=== PATIENT | female | born 1990 ===

== ENCOUNTER 2020-11-17 15:24 | Outpatient (REF) | payer OTHER, SELFPAY ==
[2020-11-19 21:32] LABS: C. trachomatis RNA TMA NOT DETECTED (NOT DETECTED); N. gonorrhoeae RNA TMA NOT DETECTED (NOT DETECTED)
== END 2020-11-17 15:25 | disposition home or self-care (01) ==
LOC: HO.LAB 15:24
PROVIDERS: Visit Provider Advanced Practice Midwife
DX: Z01.419 Encounter for gynecological examination (general) (routine) without abnormal findings (principal); N91.1 Secondary amenorrhea; Z20.2 Contact with and (suspected) exposure to infections with a predominantly sexual mode of transmission
CPT/HCPCS: 36415; 87491; 87591; 88142

== ENCOUNTER 2020-11-30 15:03 | Outpatient (REF) | payer OTHER, SELFPAY ==
--- NOTE | 2020-11-30 15:11 | US_ITS ---
EXAMINATION: ULTRASOUND PELVIS. CLINICAL INFORMATION: Secondary amenorrhea. Previous . COMPARISON: None TECHNIQUE: Transabdominal and transvaginal ultrasound pelvis is performed. FINDINGS: The uterus is anteverted and anteflexed measuring 11.4 cm in length, 4 1 cm in AP and 5.4 cm in transverse dimension. The uterus is homogeneous in echotexture. There is trace fluid within the cervical canal. Cervix is otherwise unremarkable. The right ovary measures 3.4 x 2.5 x 2.6 cm volume 11.6 mL. There are multiple follicles seen in the right ovary. The largest cyst measures 1.3 x 1.2 x 0.9 cm. The left ovary measures 2.6 x 2.1 x 2.1 cm and volume 6.0 mL. There are multiple follicles seen. There is no free fluid in the cul-de-sac. US/US transvaginal IMPRESSION: Unremarkable uterus. There are multiple or and follicles visualized. There is minimal fluid within the cervical canal.
--- NOTE | 2020-11-30 15:11 | US_ITS ---
EXAMINATION: ULTRASOUND PELVIS. CLINICAL INFORMATION: Secondary amenorrhea. Previous . COMPARISON: None TECHNIQUE: Transabdominal and transvaginal ultrasound pelvis is performed. FINDINGS: The uterus is anteverted and anteflexed measuring 11.4 cm in length, 4 1 cm in AP and 5.4 cm in transverse dimension. The uterus is homogeneous in echotexture. There is trace fluid within the cervical canal. Cervix is otherwise unremarkable. The right ovary measures 3.4 x 2.5 x 2.6 cm volume 11.6 mL. There are multiple follicles seen in the right ovary. The largest cyst measures 1.3 x 1.2 x 0.9 cm. The left ovary measures 2.6 x 2.1 x 2.1 cm and volume 6.0 mL. There are multiple follicles seen. There is no free fluid in the cul-de-sac. US/US pelvic complete IMPRESSION: Unremarkable uterus. There are multiple or and follicles visualized. There is minimal fluid within the cervical canal.
[2020-11-30 17:40] LABS: Syphilis Screen Nonreactive (Nonreactive)
[2020-11-30 17:42] LABS: HCG Quantitative < 2 mIU/mL; TSH reflex Free T4 1.66 mIU/mL (0.32-4.0)
[2020-12-01 08:31] LABS: Follicle Stimulating Hormone 6.9 mIU/mL; Lutenizing Hormone 6.3 mIU/mL; Prolactin 8.8 ng/mL
[2020-12-02 09:20] LABS: HBsAGNum1 0.22 S/CO (0.00-0.99); HIV AB/AG Nonreactive (Nonreactive); HIV Num 1 0.08 S/CO (0.00-0.99); Hepatitis B Surface Antigen Negative (Negative); ~HepC Num1 0.14 S/CO (0.00-0.79); ~Hepatitis C Antibody Nonreactive (Nonreactive)
[2020-12-03 00:27] LABS: C. trachomatis RNA TMA NOT DETECTED (NOT DETECTED); N. gonorrhoeae RNA TMA NOT DETECTED (NOT DETECTED)
[2020-12-04 13:02] LABS: Testosterone, Free 4.2 pg/mL (0.1-6.4); Testosterone, Total 28 ng/dL (2-45)
== END 2020-11-30 15:04 | disposition home or self-care (01) ==
LOC: HO.US 15:03
PROVIDERS: Visit Provider Advanced Practice Midwife
DX: N91.1 Secondary amenorrhea (principal); Z20.2 Contact with and (suspected) exposure to infections with a predominantly sexual mode of transmission
CPT/HCPCS: 36415; 76830; 76856; 83001; 83002; 83498; 84146; 84402; 84403; 84443; 84702; 86780; 86803; 87340; 87389; 87491; 87591

== ENCOUNTER → 2020-12-10 12:02 | Outpatient (BNVA) | payer OTHER, SELFPAY | PROVIDERS: PCP Hospitalist; Visit Provider Advanced Practice Midwife ==

== ENCOUNTER → 2020-12-16 13:32 | Outpatient (BNVA) | payer OTHER, SELFPAY | PROVIDERS: PCP Hospitalist; Visit Provider Advanced Practice Midwife | CPT/HCPCS: 99212 ==

== ENCOUNTER → 2021-01-07 11:44 | Outpatient (BNVA) | payer OTHER, SELFPAY | PROVIDERS: PCP Hospitalist; Visit Provider Advanced Practice Midwife ==

== ENCOUNTER 2023-06-23 13:09 | Outpatient (AMB) | payer BC, SELFPAY ==
--- NOTE | 2023-06-23 13:26 | MHC.PC.OV ---
Vital Signs 06/23/23 13:38 Height 5 ft 6 in Weight 297 lb 6 oz BMI 48.0 BP 112/68 Blood Pressure Location Lt brachial Position Sitting Respiration 14 Pulse 96 Pulse Source Pulse Oximeter Temp 97.9 F Temp Source Temporal Artery Scan Pulse Oximetry (%) 99 Oxygen Delivery Method Room Air Intake Visit Reasons: Follow up on anxiety and depression Intake Note: Patient is here to follow up on her anxiety and depression. Patient is currently taking fluoxetine 20mg daily. Patient reports she feels like this medication is doing well with her body and is not currently experiencing any symptoms. Patient reports her reproductive specialist prescribed her metformin 500mg BID and patient feels this is going well also. 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: No Accompanied by: Self / Same As Patient Allergies codeine Allergy (Severe, Verified 06/23/23 13:34) Hives Penicillins Allergy (Severe, Verified 06/23/23 13:34) Hives Sulfa (Sulfonamide Antibiotics) Allergy (Severe, Verified 06/23/23 13:34) Hives Tobacco use date assessed: 02/24/23 Dental Screening Dental Screen Date: 06/23/23 Did you have a dental visit in the last 12 months?: No Did you have a dental problem in the last 6 months where you did not have access to dental care?: No Was dental information given to patient?: Patient has dentist HPI Follow up on anxiety and depression HPI Details Pt presents to f/u anxiety/depression. Had seen Kandice Shipman 02/24/23 for her anxiety/depression. Fluoxetine was ordered. Patient is currently taking fluoxetine 20mg daily. Patient reports she feels like this medication is doing well with her body and is not currently experiencing any symptoms. Patient reports her reproductive specialist prescribed her metformin 500mg BID and patient feels this is going well also. She feels that a higher dose of fluoxetine could help more. [facility] Medical History Abdominal wound dehiscence Asthma History of migraine with aura History of severe pre-eclampsia Obesity, morbid, BMI 40.0-49.9 Polycystic ovary syndrome Surgical History Hx of section Family History Mother Lung cancer Maternal Grandfather Prostate cancer Maternal Grandmother Lymph node cancer Social History Housing: House Alcohol intake: never Patient Tobacco Use Status: Never used Tobacco e-Cigarette/Vaping Use: Never Used service: No Current occupational status: employed Current occupation: [employer] Sexual orientation: Straight/Heterosexual Gender identity: Female Cognitive needs: No Hearing needs: No Vision needs: No Female Reproductive History Menstrual Age of Menarche: 17 Questionnaire PHQ-9 Over the last 2 weeks, how often have you been bothered by any of the following problems? 1. Little interest or pleasure in doing things: not at all 2. Feeling down, depressed, or hopeless: several days 3. Trouble falling or staying asleep, or sleeping too much: nearly every day 4. Feeling tired or having little energy: several days 5. Poor appetite or overeating: more than half the days 6. Feeling bad about yourself - or that you are a failure or have let yourself or your family down: not at all 7. Trouble concentrating on things, such as reading the newspaper or watching television: several days 8. Moving or speaking so slowly that other people could have noticed. Or the opposite - being so fidgety or restless that you have been moving around a lot more than usual: several days 9. Thoughts that you would be better off or of hurting yourself in some way: not at all Total score: 9 Depression Screening Interpretation: Positive 77414 - PHQ-9 Billing: Yes Source: Developed by Drs. Kenrick Vega, Cindy Guillen, Fredis Yee and colleagues, with an educational irwin from [employer]. LAKEISHA-7 AMB Questionnaire LAKEISHA-7 Date LAKEISHA - 7 assessed: 06/23/23 Feeling nervous, anxious, or on edge: 2 = More than half the days Not being able to stop or control worryin = More than half the days Worrying too much about different things: 2 = More than half the days Trouble relaxin = More than half the days Being so restless that it is hard to sit still: 2 = More than half the days Becoming easily annoyed or irritable: 3 = Nearly every day Feeling afraid as if something awful might happen: 2 = More than half the days Total LAKEISHA-7 score (0-4 normal; 5-9 mild; 10-14 moderate; 15-21 severe): 15 Source: Developed by Drs. Kenrick Vega, Cindy Guillen, Fredis Yee and colleagues, with an educational irwin from [employer]. LAKEISHA-7 Assessment Billing LAKEISHA-7 Assessment Tool: LAKEISHA-7 Assessment 47578 Physical exam (Primary Care) Vital Signs: Last Vital Signs Temp 97.9 F 06/23/23 13:38 Pulse 96 06/23/23 13:38 Resp 14 06/23/23 13:38 BP 112/68 06/23/23 13:38 Pulse Ox 99 06/23/23 13:38 Oxygen Delivery Method Room Air 06/23/23 13:38 BMI result Body Mass Index 48.0 Tobacco/Smoking Status: Tobacco use Status Tobacco use date assessed 02/24/23 06/23/23 13:27 Patient Tobacco Use Status Never used Tobacco 06/23/23 13:27 e-Cigarette/Vaping Use Never Used 06/23/23 13:27 PHQ-9: PHQ-9 Score PHQ-9: Total score 9 06/23/23 14:33 Depression Screening Interpretation: Positive Assessment and Plan Assessment & Plan (1) Anxiety with depression: Code(s): F41.8 - Other specified anxiety disorders Plan: Ongoing anxiety. Patient notes that the 20 mg fluoxetine is helping but she thinks that higher dose would help more. Will increase this to 30 mg daily Follow-up in 1 month Also offered hydroxyzine for anxiety but patient declines this for now. (2) Polycystic ovary syndrome: Code(s): E28.2 - Polycystic ovarian syndrome Plan: Patient is on metformin and followed by an brick dropper. She would like to know if we could cover this medication in the future and I let her know I would provide her script when needed. Medications: New fluoxetine 30 mg (1.5 x 20 mg) PO DAILY 45 tabs 1RF 30 days Discontinued fluoxetine Discontinued Reason: Doctor's Order 20 mg PO DAILY 90 caps 3RF 90 days Coding Level of Care Code Est Pt Level 3 (26126) Diagnoses Anxiety with depression F41.8 Polycystic ovary syndrome E28.2 Additional Codes LAKEISHA-7 Assessment Billing - LAKEISHA-7 Assessment Tool: LAKEISHA-7 Assessment 47485 ([id number])
[2023-06-23 13:38] VITALS: BP 112/68; PULSE 96; RESP 14; TEMP 36.6; O2SAT 99; BMI 48.0
== END 2023-06-23 14:38 | disposition home or self-care (01) ==
PROVIDERS: PCP Family Medicine; Visit Provider Family Medicine
DX: F41.8 Other specified anxiety disorders (principal); E28.2 Polycystic ovarian syndrome
CPT/HCPCS: 99213

== ENCOUNTER 2023-07-19 12:54 | Outpatient (AMB) | payer BC, SELFPAY ==
[2023-07-19 12:59] VITALS: BP 124/64; PULSE 99; RESP 12; TEMP 35.9; O2SAT 98; BMI 47.6
--- NOTE | 2023-07-19 12:59 | A.OFFPC_ITS ---
Vital Signs 07/19/23 12:59 Height 5 ft 6 in Weight 295 lb BMI 47.6 BP 124/64 Blood Pressure Location Lt brachial Position Sitting Respiration 12 Pulse 99 Pulse Source Pulse Oximeter Temp 96.7 F L Temp Source Temporal Artery Scan Pulse Oximetry (%) 98 Oxygen Delivery Method Room Air Intake Visit Reasons: Health MD urgent, abnormal EKG Intake Note: Patient states the day of ED visit she had pulled into her work parking lot and states she felt dizzy. Patient states that earlier that morning she had a panic attack.Patient states that she went to urgent care they did a EKG and after EKG result she was sent to ER. Patient states that she didnt get seen at ER but did have another EKG done there. Patient states that she just wants to make sure if there is anything else that needs to be done and what the next step would be. Patient states that her fluoxetine is in capsules instead of tabs so shes just been taking 20 MG only. Hospital Sales Representative Required: No Accompanied by: Self / Same As Patient Allergies codeine Allergy (Severe, Verified 07/19/23 13:20) Hives Penicillins Allergy (Severe, Verified 07/19/23 13:20) Hives Sulfa (Sulfonamide Antibiotics) Allergy (Severe, Verified 07/19/23 13:20) Hives Medication List - Last Reconciled 07/19/23 by Kandice Shipman CNP fluoxetine 30 mg (1.5 x 20 mg) PO DAILY 30 days metformin 500 mg PO BID Tobacco use date assessed: 02/24/23 Dental Screening Dental Screen Date: 07/19/23 Did you have a dental visit in the last 12 months?: Yes Did you have a dental problem in the last 6 months where you did not have access to dental care?: No Was dental information given to patient?: Patient has dentist HPI HPI Comments History of Present Illness Details 32-year-old female presents for recent urgent care and ED visit follow- up She was evaluated at [address] on 07/14/2023 for dizziness with associated blurry vision and fatigue. She noticed symptoms started while driving to work. EKG revealed normal sinus rhythm with moderate right precordial repolarization disturbance. She was sent to the ED for further workup. She notes she went to [facility] ED where shed had an EKG blood work done and left before being seen due to family obligations. She reports experiencing panic attack before the onset of her symptoms. She notes she has been taking fluoxetine 20 mg daily instead of prescribed 30 mg daily because her health plan failed to cover the prescription in capsule form. She denies acute symptoms for the past few days. [facility] Medical History Abdominal wound dehiscence Asthma History of migraine with aura History of severe pre-eclampsia Obesity, morbid, BMI 40.0-49.9 Polycystic ovary syndrome Surgical History Hx of section Family History Mother Lung cancer Maternal Grandfather Prostate cancer Maternal Grandmother Lymph node cancer Social History Housing: House Alcohol intake: never Patient Tobacco Use Status: Never used Tobacco e-Cigarette/Vaping Use: Never Used service: No Current occupational status: employed Current occupation: [employer] Sexual orientation: Straight/Heterosexual Gender identity: Female Cognitive needs: No Hearing needs: No Vision needs: No Female Reproductive History Menstrual Age of Menarche: 17 Questionnaire LAKEISHA-7 AMB Questionnaire LAKEISHA-7 Date LAKEISHA - 7 assessed: 06/23/23 Source: Developed by Drs. Kenrick Vega, Cindy Guillen, Fredis Yee and colleagues, with an educational irwin from [employer]. Review of Systems Const Details: Const Denies chills, Denies fatigue, Denies fever(s), Denies headache(s) and Denies weakness ENT Denies dizziness and Denies headache(s) Card Denies chest pain, Denies lightheadedness, Denies dyspnea and Denies other (Palpitations) Resp Denies cough, Denies dyspnea, Denies wheezing and Denies other ( shortness of breath) GI Denies abdominal pain, Denies melena, Denies hematochezia, Denies change in bowel habits, Denies dyspepsia and Denies nausea Denies hematuria and Denies dysuria Musc Denies abnormal gait, Denies myalgias, Denies arthralgias, Denies numbness and Denies tingling Skin/Breast Denies rash, Denies unusual bruising and Denies wounds Neuro Denies abnormal gait, Denies dizziness, Denies headache(s), Denies memory loss, Denies numbness, Denies Sensory deficit (Neuro), Denies tingling and Denies weakness Psych Denies anxiety, Denies depression, Denies memory loss Endo Denies cold intolerance, Denies fatigue, Denies heat intolerance, Denies polydipsia and Denies polyuria Aller/Immun Denies wheezing Physical exam (Primary Care) Vital Signs: Last Vital Signs Temp 96.7 F L 07/19/23 12:59 Pulse 99 07/19/23 12:59 Resp 12 07/19/23 12:59 BP 124/64 07/19/23 12:59 Pulse Ox 98 07/19/23 12:59 Oxygen Delivery Method Room Air 07/19/23 12:59 BMI result Body Mass Index 47.6 Tobacco/Smoking Status: Tobacco use Status Tobacco use date assessed 02/24/23 07/19/23 13:11 Patient Tobacco Use Status Never used Tobacco 07/19/23 13:11 e-Cigarette/Vaping Use Never Used 07/19/23 13:11 Const Other: General: no acute distress and well developed Nutritional Appearance: well nourished Orientation/consciousness: patient oriented x3 HENMT Head: Yes normocephalic and Yes atraumatic Eyes General: appearance normal, both eyes and all related structures Pupils: Equal, round and reactive pupils present EOM: EOMs intact bilaterally Resp Effort & Inspection: normal respiratory effort Auscultation: clear to auscultation bilaterally Cardio Rate: regular rate Rhythm: regular rhythm Heart sounds: S1 normal heart sound present, S2 normal heart sound present, no gallops, no murmurs and no rubs GI Palpation (GI): No Abdominal aortic bruit present, Soft to palpation, nontender, No hepatosplenomegaly present and No Rebound tenderness present Auscultation: normal bowel sounds General: Yes no CVA tenderness Back/Spine/Pelvis Back: no CVA tenderness Cervical Spine: cervical ROM normal and No Cervical spine tenderness Thoracic/Lumbar Spine: thoraco-lumbar ROM normal, No pain with thoraco-lumbar ROM, No thoracic spinal tenderness and No lumbar spinal tenderness Extrem General: Yes normal to inspection, No edema and No calf tenderness Skin General: warm and dry. Normal skin color. Normal skin turgor Lesions: no lesions Rashes: no rashes Trauma: no lacerations or abrasions Wounds: no wounds Nails: normal Neuro General: patient oriented x3, gait normal and no focal neuro deficit Cranial nerves: Yes Equal, round and reactive pupils present Cognition (Neuro): normal cognition Gait exam (Neuro): Normal gait present Sensory Exam: No Sensory deficit (Neuro) Psych Appearance: grossly normal Affect: normal affect Attitude: cooperative Thought process: Normal thought process present Assessment and Plan Assessment & Plan (1) Hospital discharge follow-up: Code(s): Z09 - Encounter for follow-up examination after completed treatment for conditions other than malignant neoplasm Plan: No acute symptoms at this time Normal exam Recent blood work by [facility] reviewed and were unrevealing; EKG was not interpreted Her symptoms may be related to anxiety Discussed with the patient's PCP regarding her health plan declining to cover her current order for fluoxetine. Advised to order fluoxetine 40 mg daily and have patient follow-up with him in 3-4 weeks Follow-up with PCP in 3-4 weeks or return sooner with worsening or new symptoms Verbalized understanding and agreed with treatment plan. Medications: New fluoxetine 40 mg PO DAILY 1 day 30 caps 1RF Discontinued fluoxetine Discontinued Reason: Doctor's Order 30 mg (1.5 x 20 mg) PO DAILY 30 days 45 tabs 1RF Coding Level of Care Code Est Pt Level 3 (50232) Diagnoses Hospital discharge follow-up Z09
== END 2023-07-19 13:34 | disposition home or self-care (01) ==
PROVIDERS: PCP Family Medicine; Visit Provider Nurse Practitioner Family
DX: Z09 Encounter for follow-up examination after completed treatment for conditions other than malignant neoplasm (principal)
CPT/HCPCS: 99213

== ENCOUNTER 2023-09-22 14:11 | Outpatient (AMB) | payer BC, SELFPAY ==
--- NOTE | 2023-09-22 14:14 | MHC.PC.OV ---
Vital Signs 09/22/23 14:16 Height 5 ft 6 in Weight 285 lb BMI 46.0 BP 118/68 Blood Pressure Location Rt brachial Position Sitting Pulse 82 Pulse Source Pulse Oximeter Pulse Oximetry (%) 99 Oxygen Delivery Method Room Air Intake Visit Reasons: Follow up on anxiety and depression Intake Note: Patient is here to follow up on anxiety and depression. Allergies codeine Allergy (Severe, Verified 09/22/23 14:17) Hives Penicillins Allergy (Severe, Verified 09/22/23 14:17) Hives Sulfa (Sulfonamide Antibiotics) Allergy (Severe, Verified 09/22/23 14:17) Hives Tobacco use date assessed: 09/22/23 HPI Follow up on anxiety and depression HPI Details 32 y/o female presents to f/u anxiety/depression. Primary issues with anxiety and is on fluoxetine which she states has been helping. Increased fluoxetine from 20mg to 30mg last office visit in June. She is on fluoxetine 40mg now and she states this has been working well for her. She notes she has a referral to a therapist. Patient?notes?that?she?is?9?weeks?.??She?has?discussed?fluoxetine?with?her?MFM?and?wants?to?continue?this.??She?says?MFM?is?okay?with?current?dose. [facility] Medical History Abdominal wound dehiscence Asthma History of migraine with aura History of severe pre-eclampsia Obesity, morbid, BMI 40.0-49.9 Polycystic ovary syndrome Surgical History Hx of section Family History Mother Lung cancer Maternal Grandfather Prostate cancer Maternal Grandmother Lymph node cancer Social History Housing: House Alcohol intake: never Patient Tobacco Use Status: Never used Tobacco e-Cigarette/Vaping Use: Never Used service: No Current occupational status: employed Current occupation: [employer] Sexual orientation: Straight/Heterosexual Gender identity: Female Cognitive needs: No Hearing needs: No Vision needs: No Female Reproductive History Menstrual Age of Menarche: 17 Questionnaire PHQ-9 Over the last 2 weeks, how often have you been bothered by any of the following problems? 1. Little interest or pleasure in doing things: not at all 2. Feeling down, depressed, or hopeless: not at all 3. Trouble falling or staying asleep, or sleeping too much: nearly every day 4. Feeling tired or having little energy: not at all 5. Poor appetite or overeating: not at all 6. Feeling bad about yourself - or that you are a failure or have let yourself or your family down: not at all 7. Trouble concentrating on things, such as reading the newspaper or watching television: not at all 8. Moving or speaking so slowly that other people could have noticed. Or the opposite - being so fidgety or restless that you have been moving around a lot more than usual: not at all 9. Thoughts that you would be better off or of hurting yourself in some way: not at all Total score: 3 Source: Developed by Drs. Kenrick Vega, Fredis Fuentes and colleagues, with an educational irwin from [employer]. LAKEISHA-7 AMB Questionnaire LAKEISHA-7 Date LAKEISHA - 7 assessed: 09/22/23 Feeling nervous, anxious, or on edge: 0 = Not at all Not being able to stop or control worryin = Not at all Worrying too much about different things: 0 = Not at all Trouble relaxin = Not at all Being so restless that it is hard to sit still: 0 = Not at all Becoming easily annoyed or irritable: 0 = Not at all Feeling afraid as if something awful might happen: 0 = Not at all Total LAKEISHA-7 score (0-4 normal; 5-9 mild; 10-14 moderate; 15-21 severe): 0 Source: Developed by Drs. Kenrick Vega, Fredis Fuentes and colleagues, with an educational irwin from [employer]. Review of Systems Const Denies chills, Denies fatigue, Denies fever(s), Denies headache(s) and Denies weakness ENT Denies dizziness and Denies headache(s) Card Denies chest pain, Denies lightheadedness, Denies dyspnea and Denies other (Palpitations) Resp Denies cough, Denies dyspnea, Denies wheezing and Denies other ( shortness of breath) Musc Denies numbness and Denies tingling Neuro Denies dizziness, Denies headache(s), Denies numbness, Denies tingling, Denies paresthesias and Denies weakness Psych Denies anxiety and Denies depression Endo Denies fatigue Aller/Immun Denies wheezing Physical exam (Primary Care) Vital Signs: Last Vital Signs Pulse 82 09/22/23 14:16 BP 118/68 09/22/23 14:16 Pulse Ox 99 09/22/23 14:16 Oxygen Delivery Method Room Air 09/22/23 14:16 BMI result Body Mass Index 46.0 Tobacco/Smoking Status: Tobacco use Status Tobacco use date assessed 09/22/23 09/22/23 14:18 Patient Tobacco Use Status Never used Tobacco 09/22/23 14:15 e-Cigarette/Vaping Use Never Used 09/22/23 14:15 PHQ-9: PHQ-9 Score PHQ-9: Total score 3 09/22/23 14:43 Const General: no acute distress and well developed Nutritional Appearance: well nourished and obese morbidly obese Orientation/consciousness: patient oriented x3 HENMT Head: Yes normocephalic and Yes atraumatic Eyes General: appearance normal, both eyes and all related structures Pupils: Equal, round and reactive pupils present EOM: EOMs intact bilaterally Resp Effort & Inspection: normal respiratory effort Auscultation: clear to auscultation bilaterally Cardio Rate: regular rate Rhythm: regular rhythm Heart sounds: S1 normal heart sound present, S2 normal heart sound present, no gallops, no murmurs and no rubs Neuro General: patient oriented x3 and gait normal Cranial nerves: Yes Equal, round and reactive pupils present Psych Affect: normal affect Assessment and Plan Assessment & Plan (1) Anxiety with depression: Code(s): F41.8 - Other specified anxiety disorders Plan: Anxiety?appears?well?controlled?on?fluoxetine?40?mg?daily. However,?patient?notes?that?she?is?9?weeks?. I?had?a?discussion?with?her?regarding?possibility?for?adverse?affects?on??with?SSRI?medications. Patient?understands?risk?and?has?already?discuss?this?with?her?MFM. We?will?continue?fluoxetine. Also?discussed?that?there?is?more?data?concerning?the?use?of?sertraline?in??and?she?will?look?into?this?and?also?discuss?further?with?MFM?and?OBGYN. No?changes?to?current?medication?regimen?today. (2) Incidental : Code(s): Z33.1 - state, incidental Plan: As?above Follow-up?with?MFM?and?OBGYN Coding Level of Care Code Est Pt Level 3 (02846) Diagnoses Anxiety with depression F41.8 Incidental Z33.1
[2023-09-22 14:16] VITALS: BP 118/68; PULSE 82; O2SAT 99; BMI 46.0
== END 2023-09-22 15:10 | disposition home or self-care (01) ==
PROVIDERS: PCP Family Medicine; Visit Provider Family Medicine
DX: F41.8 Other specified anxiety disorders (principal); Z33.1 Pregnant state, incidental
CPT/HCPCS: 99213

== ENCOUNTER 2023-10-12 07:08 | Outpatient (REF) | payer BC, SELFPAY ==
[2023-10-12 11:44] LABS: MANUAL DIFF FLAG NO
[2023-10-12 11:57] LABS: Appearance Urine Turbid; Color Urine Yellow; Glucose Urine UA Negative (Negative); Leukocyte Esterase Urine Negative (Negative); Nitrite Urine Negative (Negative); Specific Gravity - Urine >= 1.030 (1.005-1.025); UMIC TRIGGER UA YES; Urine Blood Negative (Negative); Urine Ketones Negative (Negative); Urine Protein 30 (1+) mg/dL (Neg-Trace)
[2023-10-12 12:28] LABS: Basophils Percent Auto 0.3 % (0-2); Eosinophils Absolute Auto 0.2 X10*3/uL (0.0-0.4); Eosinophils Percent Auto 2.2 % (0-4); Hematocrit 36.6 % (37.0-47.0); Hemoglobin 12.1 g/dl (12.0-16.0); Imm Gran Abs Auto 0.04 X10*3/uL (0.00-0.03); Imm Gran Pct Auto 0.4 % (0.0-0.4); Lymphocytes Absolute Auto 1.8 X10*3/uL (1.2-4.9); Mean Corpuscular HGB Conc 33.1 g/dl (31.0-35.0); Mean Corpuscular Hemoglobin 29.2 pg (27.0-33.0); Mean Corpuscular Volume 88.4 fL (80.0-98.0); Mean Platelet Volume 11.6 fL (9.4-12.3); Monocytes Absolute Auto 0.6 X10*3/uL (0.1-1.2); Monocytes Percent Auto 6.2 % (2-11); Neutrophils Absolute Auto 7.6 x10*3/uL (2.0-8.3); Neutrophils Percent Auto 73.9 % (45-73); Platelet Count 207 X10*3/uL (160-400); Red Blood Count 4.14 X10*6/uL (4.20-5.50); Red Cell Distribution Width 13.1 % (11.0-16.0); White Blood Count 10.3 X10*3/uL (4.8-10.8)
[2023-10-12 12:37] LABS: Alanine Aminotransferase 14 U/L (0-31); Albumin Level 3.8 g/dL (3.5-5.0); Alkaline Phosphatase 43 U/L (39-117); Anion Gap 11 (12-20); Aspartate Amino Transferase 13 U/L (5-31); Bilirubin Total 0.3 mg/dL (0.0-1.0); Blood Urea Nitrogen 10 mg/dL (9-16); Calcium 8.8 mg/dL (8.4-10.2); Carbon Dioxide 23 mmol/L (22-29); Chloride 104 mmol/L (96-108); Cholesterol 161 mg/dL (<200); Estimated Glomerular Filt Rate > 60; Glucose Fasting 107 mg/dL (60-99); HDL Cholesterol 49 mg/dL (>40); LDL Cholesterol Calculated 87 mg/dL (<100); Potassium 3.9 mmol/L (3.3-5.1); Sodium 134 mmol/L (135-145); Total Protein 6.9 g/dL (6.5-8.0); Triglycerides 126 mg/dL (<150)
[2023-10-12 12:43] LABS: TSH reflex Free T4 0.91 uIU/mL (0.32-4.0)
[2023-10-12 12:46] LABS: Bacteria Urine None Seen (None Seen); Hyaline Casts Urine 0-2 /LPF (0-2); Other Crystals Urine Present; RBC Urine 0-2 /HPF (0-2); Squamous Epithelial Cell Urine 0-2 /HPF (0-2); WBC Urine 0-5 /HPF (0-5)
[2023-10-12 12:49] LABS: Creatinine Urine 301.41 mg/dL; Microalbum/Creatinine Ratio Ur 36.1 ug/mg cr (<30)
== END 2023-10-12 07:09 | disposition home or self-care (01) ==
LOC: HO.WFDLDS 07:08
PROVIDERS: Visit Provider Family Medicine
DX: Z00.00 Encounter for general adult medical examination without abnormal findings (principal); I10 Essential (primary) hypertension
CPT/HCPCS: 36415; 80053; 80061; 81001; 81003; 82043; 82570; 84443; 85025

== ENCOUNTER 2024-01-15 16:01 | Outpatient (AMB) | payer BC, SELFPAY ==
[2024-01-15 16:06] VITALS: BP 120/62; PULSE 98; O2SAT 99; BMI 48.9
--- NOTE | 2024-01-15 16:06 | A.OFFPC_ITS ---
Vital Signs 01/15/24 16:06 Height 5 ft 6 in Weight 303 lb 2 oz BMI 48.9 BP 120/62 Blood Pressure Location Lt brachial Position Sitting Pulse 98 Pulse Source Pulse Oximeter Pulse Oximetry (%) 99 Oxygen Delivery Method Room Air Intake Visit Reasons: CPE Intake Note: Patient is here for her physical today. Allergies codeine Allergy (Severe, Verified 01/15/24 16:11) Hives Penicillins Allergy (Severe, Verified 01/15/24 16:11) Hives Sulfa (Sulfonamide Antibiotics) Allergy (Severe, Verified 01/15/24 16:11) Hives Tobacco use date assessed: 01/15/24 Dental Screening Dental Screen Date: 01/15/24 Did you have a dental visit in the last 12 months?: Yes Did you have a dental problem in the last 6 months where you did not have access to dental care?: No Was dental information given to patient?: Patient has dentist HPI CPE HPI Details 33 y/o female presents for a CPE with f/ u labs and health maintenance. Labs were drawn 10/12/23. Reviewed labs with pt. Mildly low sodium at 134. Elevated fasting glucose of 107. Triglycerides 126. TC 161. LDL 87. HDL 49. Liver enzymes are fine. Patient?currently??at?25.6 WGA?and?followed?by?[facility] Medical History History of severe pre-eclampsia History of migraine with aura Polycystic ovary syndrome Abdominal wound dehiscence Obesity, morbid, BMI 40.0-49.9 Asthma Surgical History Hx of section Family History Mother Lung cancer Maternal Grandfather Prostate cancer Maternal Grandmother Lymph node cancer Social History Housing: House Alcohol intake: never Patient Tobacco Use Status: Never used Tobacco e-Cigarette/Vaping Use: Never Used service: No Current occupational status: employed Current occupation: [employer] Sexual orientation: Straight/Heterosexual Gender identity: Female Cognitive needs: No Hearing needs: No Vision needs: No Female Reproductive History Menstrual Age of Menarche: 17 Questionnaire LAKEISHA-7 AMB Questionnaire LAKEISHA-7 Date LAKEISHA - 7 assessed: 09/22/23 Source: Developed by Drs. Kenrick Vega, Cindy Guillen, Fredis eYe and colleagues, with an educational irwin from [employer]. Review of Systems Const Denies chills, Denies fatigue, Denies fever(s), Denies headache(s) and Denies weakness Eyes Denies change in vision ENT Denies dizziness, Denies headache(s), Denies hearing loss, Denies nasal congestion, Denies sinus pain, Denies sinus pressure and Denies sore throat Card Denies chest pain, Denies lightheadedness, Denies dyspnea and Denies other (palpitations) Resp Denies cough, Denies dyspnea and Denies wheezing GI Denies abdominal pain, Denies melena, Denies hematochezia, Denies change in bowel habits, Denies dyspepsia and Denies nausea Denies hematuria and Denies dysuria Musc Denies abnormal gait, Denies myalgias, Denies arthralgias, Denies numbness and Denies tingling Skin/Breast Denies rash, Denies unusual bruising and Denies wounds Neuro Denies abnormal gait, Denies dizziness, Denies headache(s), Denies memory loss, Denies numbness, Denies Sensory deficit (Neuro), Denies tingling and Denies weakness Psych Denies anxiety, Denies depression and Denies memory loss Endo Denies cold intolerance, Denies fatigue, Denies heat intolerance, Denies polydipsia and Denies polyuria /Lymph Denies easy bleeding and Denies easy bruising Aller/Immun Denies wheezing Physical exam (Primary Care) Vital Signs: Last Vital Signs Pulse 98 01/15/24 16:06 BP 120/62 01/15/24 16:06 Pulse Ox 99 01/15/24 16:06 Oxygen Delivery Method Room Air 01/15/24 16:06 BMI result Body Mass Index 48.9 Tobacco/Smoking Status: Tobacco use Status Tobacco use date assessed 01/15/24 01/15/24 16:16 Patient Tobacco Use Status Never used Tobacco 01/15/24 16:09 e-Cigarette/Vaping Use Never Used 01/15/24 16:09 Const General: no acute distress, well developed, alert and awake Nutritional Appearance: well nourished and obese morbidly obese Orientation/consciousness: patient oriented x3 HENMT Head: Yes normocephalic and Yes atraumatic Ears: hearing grossly normal bilaterally and TM's normal bilaterally General nose exam: Normal external nose present and Normal nares present Mouth: Normal oral and palatal mucosa present and moist mucous membranes Teeth and gingiva: dentition normal Throat: Yes posterior oropharynx normal Eyes General: appearance normal, both eyes and all related structures Pupils: Equal, round and reactive pupils present and Pupil accommodation reflex normal EOM: EOMs intact bilaterally Neck Neck: Yes normal visual inspection, Yes no lymphadenopathy and Yes trachea midline Thyroid: Thyroid normal Carotids: no bruits Lymphatic: no lymphadenopathy noted Chest Chest palpation & inspection: normal inspection of the chest Resp Effort & Inspection: normal respiratory effort Auscultation: clear to auscultation bilaterally Cardio Rate: regular rate Rhythm: regular rhythm Heart sounds: S1 normal heart sound present, S2 normal heart sound present, no gallops, no murmurs and no rubs Bruits: no abdominal aortic bruits and no carotid bruits GI Palpation (GI): No Abdominal aortic bruit present, Soft to palpation, nontender, No hepatosplenomegaly present and No Rebound tenderness present Auscultation: normal bowel sounds General: Yes no CVA tenderness Back/Spine/Pelvis Back: no CVA tenderness Cervical Spine: cervical ROM normal and No Cervical spine tenderness Thoracic/Lumbar Spine: thoraco-lumbar ROM normal, No pain with thoraco-lumbar ROM, No thoracic spinal tenderness and No lumbar spinal tenderness Skin Lesions: no lesions Rashes: no rashes Trauma: no lacerations or abrasions Wounds: no wounds Nails: normal Neuro General: patient oriented x3 Cranial nerves: Yes Equal, round and reactive pupils present Cognition (Neuro): normal cognition Gait exam (Neuro): Normal gait present Motor exam (neuro): 5/5 motor strength present throughout Sensory Exam: No Sensory deficit (Neuro) Deep tendon reflexes (DTR's): Right patellar reflex intensity grade: 2+ and Left patellar reflex intensity grade: 2+ Extrem General: Yes normal to inspection and No edema Psych Appearance: grossly normal Affect: normal affect Attitude: cooperative Thought process: Normal thought process present Assessment and Plan Assessment & Plan (1) Adult general medical exam: Code(s): Z00.00 - Encounter for general adult medical examination without abnormal findings Plan: 33-year-old?female?presents?for?complete?physical?exam Encouraged?healthy?diet?with?active?lifestyle?and?plenty?of?exercise (2) Incidental : Code(s): Z33.1 - state, incidental Plan: Follow-up?with?MFM?as?recommended Currently?doing?well (3) GERD (gastroesophageal reflux disease): Code(s): K21.9 - Gastro-esophageal reflux disease without esophagitis Plan: Avoid?trigger?foods,?over?filling?and?eating?too?close?to?bedtime (4) Elevated fasting glucose: Code(s): R73.01 - Impaired fasting glucose Plan: Mildly?elevated?fasting?blood?sugar.??Her?MFM?is?following?A1c?test Follow-up?with?MFM?as?recommended (5) Screening for cervical cancer: Code(s): Z12.4 - Encounter for screening for malignant neoplasm of cervix Plan: Last?Pap?smear?about?7?months?ago?just?prior?to?getting?. Up-to-date (6) Family history of lymphoma: Code(s): Z80.7 - Family history of other malignant neoplasms of lymphoid, hematopoietic and related tissues Plan: Patient?notes?that?grandmother,?mother,?2?a unts?and?1?uncle?all?have?had?cancers?including?lymphomas Referred?for?genetic?counseling. Orders: Referrals Genetics Referral Z80.7 - Family history of other malignant neoplasms of lymphoid, hematopoietic and related tissues Coding Level of Care Code Est Pt Level 3 (26780) Est Pt Prev Care 18-39y(74782) Diagnoses Adult general medical exam Z00.00 Incidental Z33.1 GERD (gastroesophageal reflux disease) K21.9 Elevated fasting glucose R73.01 Screening for cervical cancer Z12.4 Family history of lymphoma Z80.7
== END 2024-01-15 17:15 | disposition home or self-care (01) ==
PROVIDERS: PCP Family Medicine; Visit Provider Family Medicine
DX: Z00.00 Encounter for general adult medical examination without abnormal findings (principal); K21.9 Gastro-esophageal reflux disease without esophagitis; R73.01 Impaired fasting glucose; Z80.7 Family history of other malignant neoplasms of lymphoid, hematopoietic and related tissues
CPT/HCPCS: 99395

== ENCOUNTER 2025-07-22 09:12 | Outpatient (AMB) | payer BC, SELFPAY ==
--- NOTE | 2025-07-22 09:00 | MHC.PC.OV ---
Intake Visit Reasons: med review /Anxiety follow up Intake Note: Umu presents by telephone today for a medication review and a follow up to anxiety. Patient is currently taking 60mg of the fluoxetine. Allergies codeine Allergy (Severe, Verified 07/22/25 09:01) Hives Penicillins Allergy (Severe, Verified 07/22/25 09:01) Hives Sulfa (Sulfonamide Antibiotics) Allergy (Severe, Verified 07/22/25 09:01) Hives Medication List - Last Reconciled 07/22/25 by Tk Farr MD fluoxetine 60 mg PO DAILY PNV no.[id number] acid 28 mg iron- 800 mcg tabs PO Tobacco use date assessed: 07/22/25 Dental Screening Dental Screen Date: 07/22/25 Did you have a dental visit in the last 12 months?: Yes Did you have a dental problem in the last 6 months where you did not have access to dental care?: No Was dental information given to patient?: Patient has dentist HPI med review /Anxiety follow up HPI Details 34 y/o female presents to f/u anxiety via telemedicine. Pt reports she has been getting migraines recently. She describes symptoms of aura/tunnel vision. Reports fluoxetine has been working well. She tries to keep herself active. Does have ongoing complaints of her weight. [facility] Medical History History of severe pre-eclampsia History of migraine with aura Polycystic ovary syndrome Abdominal wound dehiscence Obesity, morbid, BMI 40.0-49.9 Asthma Surgical History Hx of section Family History (Updated 07/22/25 @ 09:07 by Kendal Blackwood MA) Mother Lung cancer Maternal Grandfather Prostate cancer Substance abuse Maternal Grandmother Lymph node cancer Father Mental health disorder ADHD Sister Mental health disorder Maternal Aunt Mental health disorder Substance abuse Social History (Updated 07/22/25 @ 09:07 by Kendal Blackwood MA) Housing: House Alcohol intake: never Patient Tobacco Use Status: Never used Tobacco e-Cigarette/Vaping Use: Never Used Second Hand Smoke Exposure: No Use of substances other than those prescribed or required for medical reasons: Yes Substance Use Type: Marijuana service: No Current occupational status: employed Current occupation: [employer] Sexual orientation: Straight/Heterosexual Gender identity: Female Cognitive needs: No Hearing needs: No Vision needs: No Female Reproductive History Menstrual Age of Menarche: 17 Questionnaire LAKEISHA-7 AMB Questionnaire LAKEISHA-7 Date LAKEISHA - 7 assessed: 07/22/25 Feeling nervous, anxious, or on edge: 1 = Several days Not being able to stop or control worryin = Not at all Worrying too much about different things: 0 = Not at all Trouble relaxin = Several days Being so restless that it is hard to sit still: 1 = Several days Becoming easily annoyed or irritable: 2 = More than half the days Feeling afraid as if something awful might happen: 1 = Several days Total LAKEISHA-7 score (0-4 normal; 5-9 mild; 10-14 moderate; 15-21 severe): 6 Source: Developed by Drs. Kenrick Vega, Cindy Guillen, Fredis Yee and colleagues, with an educational irwin from [employer]. LAKEISHA-7 Assessment Billing LAKEISHA-7 Assessment Tool: LAKEISHA-7 Assessment 90257 Review of Systems Const Denies chills, Denies fatigue, Denies fever(s), Denies headache(s) and Denies weakness ENT Denies dizziness and Denies headache(s) Card Denies dyspnea Resp Denies cough, Denies dyspnea, Denies wheezing and Denies other (shortness of breath) Musc Denies numbness and Denies tingling Neuro Denies dizziness, Denies headache(s), Denies numbness, Denies tingling and Denies weakness Psych Denies anxiety and Denies depression Endo Denies fatigue Aller/Immun Denies wheezing Physical exam (Primary Care) Tobacco/Smoking Status: Tobacco use Status Tobacco use date assessed 07/22/25 07/22/25 09:10 Patient Tobacco Use Status Never used Tobacco 07/22/25 09:07 e-Cigarette/Vaping Use Never Used 07/22/25 09:07 Telehealth Telehealth Telehealth Platform: Telephone Location of provider rendering services: practice address Location of patient: address on file Patient Identification confirmed using: Name, : Yes Telehealth method: voice only Patient verbally consented to treatment: Yes Patient verbally consented to billing insurance company: Yes Patient informed of any privacy concerns related to visit: Yes Minutes spent on Phone/Video with Pt.: 11 Coding Level of Care Code Tele Est Pt Level 2 (62995) Diagnoses Migraine G43.909 Anxiety with depression F41.8 Anxiety F41.9 Polycystic ovary syndrome E28.2 Obesity, morbid, BMI 40.0-49.9 E66.01 Additional Codes LAKEISHA-7 Assessment Billing - LAKEISHA-7 Assessment Tool: LAKEISHA-7 Assessment 67246 ([id number]) Assessment & Plan Assessment & Plan (1) Migraine: Code(s): G43.909 - Migraine, unspecified, not intractable, without status migrainosus Category: Medical Plan: Patient gets classic style migraines with an aura particularly around menstruation She has never tried an abortive medication before Will send script for Imitrex (2) Anxiety with depression: Code(s): F41.8 - Other specified anxiety disorders Category: Medical Plan: She is on fluoxetine 60 mg daily which was managed by her OBGYN for depression and anxiety after her delivery Will prescribe this for her Encouraged exercise as well (3) Anxiety: Code(s): F41.9 - Anxiety disorder, unspecified Category: Medical Plan: As above (4) Polycystic ovary syndrome: Code(s): E28.2 - Polycystic ovarian syndrome Category: Medical Plan: 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
--- OUTSIDE RECORDS SUMMARY | 2025-07-22 10:34 | XMS_ITS | Encounter Summary ---
Author Organization [employer] Address [address] [place] [address] Care Team Providers Care Canoe Inspector Name Role Phone Unavailable Primary Care Provider Unavailabl e Encounter Details Date Type Department Care Team (Latest Contact Info) Description 02/18/2021 Abstract [facility] CONVERSIONS Dental, Provider, DDS Social History Tobacco Use Types Packs/Day Years Used Date Smoking Tobacco: Never Assessed Comments Unknown Sex and Gender Information Value Date Recorded Sex Assigned at Female 07/10/2024 1:59 PM EDT Legal Sex Female 5:36 PM EDT Gender Identity Female 07/10/2024 1:59 PM EDT Sexual Orientation Choose not to disclose 2023 1:59 PM EDT documented as of this encounter Plan of Treatment Not on file documented as of this encounter Visit Diagnoses Not on filedocumented in this encounter
--- OUTSIDE RECORDS SUMMARY | 2025-07-22 10:34 | XMS_ITS | Clinical Summary ---
Author Organization [employer] Address [address] [facility] [facility] [address] [place] [address] Care Team Providers Care Distribution Superintendent Name Role Phone Unavailable Primary Care Provider Unavailabl e Allergies Active Allergy Reactions Criticality Noted Date Comments Amoxicillin-Pot Clavulanate Diarrhea 04/02/20 15 Codeine 07/11/2024 Oxycodone Hives 04/27/2018 Penicillin G 07/11/2024 Sulfamethoxazole-Trimethoprim 2023 Medications FLUoxetine (PROzac) 40 MG capsule Take 40 mg by mouth Once per day. 04/16/2024 Active Social History Tobacco Use Types Packs/Day Years Used Date Smoking Tobacco: Never Assessed Comments Unknown Sex and Gender Information Value Date Recorded Sex Assigned at Female 07/10/2024 1:59 PM EDT Legal Sex Female 5:36 PM EDT Gender Identity Female 07/10/2024 1:59 PM EDT Sexual Orientation Choose not to disclose 2023 1:59 PM EDT Plan of Treatment Health Maintenance Due Date Last Done Comments Depression Screening 1992 HIV Screening 1992 Lipid Panel 1992 SDOH Screening 1992 Disability Screening 1992 Alcohol/Substance Use Screening 2004 Tobacco Screening 2004 Family Planning (PISQ) 2007 Hepatitis C Screening 2010 Pneumococcal Vaccine: Pediatrics (0 to 5 Years) and At-Risk Patients (6 to 49) Years (1 of 2 - PCV) 2011 HPV Vaccines (3 - 3-dose series) 11/05/2012 08/13/2012, 10/08/2008 Pap Smear 2013 Dental Oral Exam 08/21/2021 02/18/2021 Dental Prophylaxis 08/21/2021 02/18/2021 Dental X-Ray: Bitewings 02/19/2022 02/18/2021 Cervical Cancer Screening 2022 HPV/Cotest 2022 Dental X-Ray: Full Mouth 06/10/2025 06/09/2022, 06/2021 COVID-19 Vaccine (2 - season) 2025 01/28/2022 Influenza Vaccine (#1) 2025 08/02/2017 DTaP/Tdap/Td Vaccines (9 - Td or Tdap) 02/05/2034 02/06/2024, 10/18/2019, 01/15/2014, Additional history exists Zoster Vaccines (1 of 2) 2042 RSV Patients and Patients Aged 60 years or older (1 - 1-dose 75+ series) 2067 Hepatitis B Vaccines Completed 09/22/1993, 01/28/1993, 1992 HIB Vaccines Completed 04/10/1994, 03/14, 06/21/1993, Additional history exists IPV Vaccines Completed 06/16/1997, 01/1995, 04/10/1994, Additional history exists Meningococcal Vaccine Aged Out 10/08/2008 No jeronimo nataly eligible based on patient's age to complete this topic Hepatitis A Vaccines Aged Out No long er eligible based on patient's age to complete this topic Meningococcal B Vaccine Aged Out No l onger eligible based on patient's age to complete this topic RSV under 20 months Aged Out No longe r eligible based on patient's age to complete this topic Rotavirus Vaccines Aged Out No longer eligible based on patient's age to complete this topic Procedures Procedure Name Priority Date/Time Associated Diagnosis Comments PANORAMIC RADIOGRAPHIC IMAGE Routine 06/09/2022 12:00 AM EDT PROPHYLAXIS - ADULT Routine 02/18/2021 1 2:00 AM EDT INTRAORAL - COMPLETE SERIES OF RADIOGRAPHIC IMAGES Routine 02/18/2021 12:00 AM EDT COMPREHENSIVE ORAL EVALUATION - NEW OR ESTABLISHED PATIENT Routine 02/18/2021 12:00 AM EDT from Last 3 Months or Most Recently Relevant to Health Maintenance Insurance DENTAL - [place] PARTIAL (MEDICAID)
== END 2025-07-22 10:13 | disposition home or self-care (01) ==
LOC: HO.HMCFM 09:12
PROVIDERS: PCP Family Medicine; Visit Provider Family Medicine
DX: G43.909 Migraine, unspecified, not intractable, without status migrainosus (principal); F41.8 Other specified anxiety disorders; E66.01 Morbid (severe) obesity due to excess calories; F41.9 Anxiety disorder, unspecified; E28.2 Polycystic ovarian syndrome

== ENCOUNTER → 2025-07-22 09:12 | Outpatient (BNVA) | payer BC, SELFPAY | PROVIDERS: PCP Family Medicine; Visit Provider Family Medicine | DX: G43.909 Migraine, unspecified, not intractable, without status migrainosus (principal); F41.8 Other specified anxiety disorders; E28.2 Polycystic ovarian syndrome; E66.01 Morbid (severe) obesity due to excess calories | CPT/HCPCS: 96127 ==